=== PATIENT | male | born 1995 | race African-American/Black ===

== ENCOUNTER 2020-06-10 10:58 | Emergency (ER) | payer MEDICAID ==
[~2020-06-10] VITALS: Ht 177.8 cm; Wt 77.3 kg
[2020-06-10 11:00] VITALS: BP 111/56
== END 2020-06-10 12:07 | disposition home or self-care (01) ==
LOC: EMS 11:38
DX: S50.362A Insect bite (nonvenomous) of left elbow, initial encounter (principal); W57.XXXA Bitten or stung by nonvenomous insect and other nonvenomous arthropods, initial encounter; Y93.89 Activity, other specified; Y92.89 Other specified places as the place of occurrence of the external cause; Y99.8 Other external cause status
CPT/HCPCS: 99283; Z7502